=== PATIENT | female | born 1930 | race Caucasian/White ===

== ENCOUNTER 2017-11-20 07:17 | Day surgery (SDC) | payer MEDICARE, OTHER ==
[2017-11-20] MEDS ORDERED: Propofol 200 MG/20 ML SDV ONE (07:20)
[2017-11-20] MEDS ORDERED: Ketamine 500 mg/10 ML MDV ONE (07:20)
[2017-11-20] MEDS ORDERED: Midazolam 1 MG/ML 2 ML SDV ONE (07:20)
[2017-11-20] MEDS ORDERED: Sodium Chloride 0.9% 5 ML Syringe FLUSH PRN (07:30)
[2017-11-20] MEDS ORDERED: Sodium Chloride 0.9% 1,000 ML IV SCH (07:30)
[2017-11-20] MEDS ORDERED: Ketamine 500 mg/10 ML MDV IV ONE (08:22)
[2017-11-20] MEDS ORDERED: Midazolam 1 MG/ML 2 ML SDV IV ONE (08:22)
[2017-11-20] MEDS ORDERED: Propofol 200 MG/20 ML SDV IV ONE (08:22)
--- NOTE | 2017-11-20 09:25 | PCM.OPNOTE ---
- General Post-Op/Procedure Note Date of Surgery/Procedure: 11/20/17 Operative Procedure(s): Bilateral myringotomy. Findings: Both tympanic membranes were thickened. Slight retraction of the upper part of the left TM. There is small amount of fluid was noted in the right ear. No fluid in the left ear. Pre Op Diagnosis: Bilateral chronic serous otitis media. Decreased hearing bilaterally. Post-Op Diagnosis: Thickened TMs bilaterally with retraction of the left TM. Small amount of fluid was seen in the right middle ear. Anesthesia Technique: MAC Primary Surgeon: Gabe Hargrove Condition: Good Free Text/Narrative:: Dictated
--- NOTE | 2017-11-21 08:09 | OR ---
DATE OF SURGERY: 11/20/2017 SURGEON: Gabe Hargrove MD PREOPERATIVE DIAGNOSIS: Decreased hearing bilaterally, probably due to chronic serous otitis media. POSTOPERATIVE DIAGNOSIS: Decreased hearing bilaterally, probably due to chronic serous otitis media. OPERATION PERFORMED: Myringotomy. DESCRIPTION OF PROCEDURE: Informed consent was obtained with the patient regarding this procedure. All possible complications were discussed. She wished to proceed. She was taken to the OR and given a short general anesthetic. [employer] operating microscope was brought into view. The right TM was examined. The TM was dull and somewhat thickened. We made a small myringotomy incision in the posterior-inferior quadrant of the TM. A very small amount of fluid was aspirated. The patient tolerated the procedure well. The left eardrum was similarly viewed. We made a small myringotomy incision of the posterior-inferior quadrant. There was no fluid present, but if but the TM was thickened and retracted in the upper portion. The patient tolerated the procedure very well. There were no complications. The patient was transferred to the recovery room in an excellent condition. /[id number]/MODL
== END 2017-11-20 10:45 | disposition home or self-care (01) ==
LOC: KA.SDS 07:17
PROVIDERS: ATTEND Family Medicine
DX: H91.93 Unspecified hearing loss, bilateral (principal); Z79.899 Other long term (current) drug therapy
CPT/HCPCS: 00124; 82962; J2250; J2704; J7030